=== PATIENT | female | born 1925 | race Caucasian/White ===

== ENCOUNTER → 2016-03-13 | Outpatient (CLI) | payer OTHER ==
[~2016-03-13] MED LIST: ACET-1256 PO; CHOL20007 PO; CMD/25 PO; CZR50 PO; HYDR12.55 PO; HYDR25TA5 PO; KFL500 PO; LCTX PO; LEVO75TA5 PO; METO50TA7 PO; MULT-190 PO; NXM/40 PO; ONDA4TAB46 PO; ROPI1TAB29 PO; SACC250C PO; SERT50TA PO; SIMV10TA2 PO; TPRSR25 PO; WARF-246 PO; WARF2.5T8 PO; WARF5TAB7 PO
[2016-03-13 11:06] LABS: URINE APPEARANCE CLOUDY (CLEAR); URINE BILIRUBIN NEG (NEG); URINE COLOR YELLOW; URINE NITRITE NEG (NEG); URINE SPECIFIC GRAVITY 1.018 (1.000-1.030); UROBILINOGEN NEG (NEG)
[2016-03-13 11:10] LABS: MANUAL MICROSCOPIC REQUIRED? NO; REVIEW REQ? NO
== END | disposition home or self-care (01) ==
LOC: C.LABSPEC 10:41
PROVIDERS: ATTEND Family Medicine
DX: R30.0 Dysuria (principal)

== ENCOUNTER → 2016-07-15 | Outpatient (CLI) | payer OTHER ==
[2016-07-15 17:22] LABS: HEMATOCRIT 43.2 % (37-47); MEAN CELL VOLUME 96.2 fL (80-100); MEAN CORPUSCULAR HGB CONC 32.2 g/dl (32-36); PLATELET COUNT 269 K/uL (130-400); RED BLOOD COUNT 4.49 M/uL (4.2-5.4)
[2016-07-15 18:13] LABS: ALT/SGPT 18 U/L (12-78); AST/SGOT 20 U/L (15-37); BLOOD UREA NITROGEN 33 mg/dl (7-18); BUN/CREATININE RATIO 32.7 (10-20); CARBON DIOXIDE 28 mmol/L (21-32); CHLORIDE 105 mmol/L (98-107); CHOLESTEROL 135 mg/dl (0-200); GLUCOSE 89 mg/dl (70-99); POTASSIUM 4.6 mmol/L (3.5-5.1); SODIUM 142 mmol/L (136-145); TRIGLYCERIDES 99 mg/dl (0-150); VERY LOW DENSITY LIPOPROT CALC 20 mg/dl
[2016-07-15 18:14] LABS: ALKALINE PHOSPHATASE 84 U/L (45-117); CHOLESTEROL/HDL RATIO 2.9; HDL CHOLESTEROL 46 mg/dl; LDL CHOLESTEROL CALCULATED 69 mg/dl
[2016-07-15 18:28] LABS: RATIO 123.6 mcg/mg (0-30.0)
[2016-07-15 18:35] LABS: CALCIUM 9.6 mg/dl (8.5-10.1)
[2016-07-15 19:44] LABS: MAGNESIUM 2.3 mg/dl (1.8-2.4)
[2016-07-16 05:59] LABS: ESTIMATED AVERAGE GLUCOSE 114 mg/dl; HA1C FLAG Normal (Normal)
== END | disposition home or self-care (01) ==
LOC: C.LABPBG 14:09
PROVIDERS: ATTEND Family Medicine
DX: I48.2 Chronic atrial fibrillation (principal); E78.5 Hyperlipidemia, unspecified; I10 Essential (primary) hypertension; Z79.899 Other long term (current) drug therapy; E11.9 Type 2 diabetes mellitus without complications; I65.29 Occlusion and stenosis of unspecified carotid artery

== ENCOUNTER 2016-07-30 12:51 | Observation (INO) | payer OTHER ==
[~2016-07-30] VITALS: Ht 162.6 cm; Wt 65.3 kg
[~2016-07-30 12:51] MED LIST changes: -CHOL20007 PO; -HYDR12.55 PO; -KFL500 PO; -LCTX PO; -METO50TA7 PO; -WARF2.5T8 PO; -WARF5TAB7 PO
[2016-07-30] MEDS ORDERED: SODIUM CHLORIDE 0.9% 1000ML 1,000 ML IV STA ×2 (13:06)
[2016-07-30] MEDS ORDERED: ONDANSETRON INJ 2 MG/ML 2 ML VIAL IV STA (13:06)
[2016-07-30] MEDS ORDERED: PROMETHAZINE HCL INJ 25 MG in SODIUM CHLORIDE 0.9% 50ML 50 ML IV SCH (13:28)
[2016-07-30] MEDS ORDERED: PROMETHAZINE HCL INJ 25 MG/ML 1 ML VIAL IV STA (13:28)
[2016-07-30] MEDS ORDERED: METO50TA7 PO (13:43)
[2016-07-30] MEDS ORDERED: CHOL20007 PO (13:44)
[2016-07-30] MEDS ORDERED: HYDR12.55 PO (13:44)
[2016-07-30] MEDS ORDERED: WARF2.5T8 PO (13:56)
[2016-07-30] MEDS ORDERED: WARF5TAB7 PO (13:56)
[2016-07-30 14:10] LABS: BASO % 0.9 %; BASO ABS # 0.04 K/uL (0-0.2); COMPLETE YES; EOS % 1.3 %; HEMATOCRIT 45.5 % (37-47); IG% 0.2 %; LYMPH % 22.2 %; LYMPH ABS # 1.02 K/uL (1.2-3.4); MEAN CORPUSCULAR HEMOGLOBIN 30.6 pg (25-34); MEAN CORPUSCULAR HGB CONC 32.5 g/dl (32-36); MEAN PLATELET VOLUME 10.2 fL (7.4-10.4); MONO % 8.7 %; NEUT % 66.7 %; PLATELET COUNT 267 K/uL (130-400); RED BLOOD COUNT 4.84 M/uL (4.2-5.4); WHITE BLOOD COUNT 4.59 K/uL (4.8-10.8)
[2016-07-30 14:27] LABS: BUN/CREATININE RATIO 31.2 (10-20); CALCIUM 9.3 mg/dl (8.5-10.1); CREATININE 1.3 mg/dl (0.60-1.20); MAGNESIUM 2.2 mg/dl (1.8-2.4); POTASSIUM 4.1 mmol/L (3.5-5.1)
[2016-07-30 14:28] LABS: PROTHROMBIN TIME (PATIENT) 44.9 SECONDS (9.0-12.0)
[2016-07-30 14:35] LABS: PARTIAL THROMBOPLASTIN RATIO 1.8
[2016-07-30 14:38] LABS: THYROID STIMULATING HORMONE 0.348 uIu/ml (0.300-4.500)
--- NOTE | 2016-07-30 15:25 | DIAGNOSTIC IMAGING REPORT ---
HEAD CT NONCONTRAST CT DOSE: 537.48 mGy.cm HISTORY: new onset garbled speech, ? confusion TECHNIQUE: Multiaxial CT images of the head were performed without the use of intravenous contrast. Automated exposure control was utilized for this study. Comparison: Head CT 03/21/2015. Findings: Brain parenchyma: There is periventricular white matter lucency compatible with microvascular ischemic change. 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 There is no hemorrhage, mass effect, or evidence of acute territorial ischemia by CT criteria. Gupta-white matter differentiation is maintained. No extra-axial fluid collection is seen. Ventricles, sulci and cisterns: CSF prominence compatible with cerebral atrophy. Intracranial vasculature: Vascular calcification is noted. Calvarium: Unremarkable. Sinuses and mastoids: Small fluid levels within the sphenoid sinuses. Orbits: Grossly intact. IMPRESSION: Small fluid levels within the sphenoid sinuses. Involutional changes with old infarction. No acute intracranial process. Electronically signed by: David Jean M.D. 07/30/2016 3:24 PM Dictated Date/Time: 07/30/2016 3:20 PM
--- NOTE | 2016-07-30 15:52 | DIAGNOSTIC IMAGING REPORT ---
ABDOMEN 2VIEW W/PA CHEST RTN CLINICAL HISTORY: Vomiting and diarrhea x3 days COMPARISON STUDY: 06/08/2015 FINDINGS: The heart is enlarged. There are postsurgical changes of midline sternotomy. There is a left subclavian dual-chamber central venous pacemaker present. There is underlying emphysema. There is no free air. There are right basilar atelectatic changes. Supine and decubitus views the abdomen reveal scattered air-fluid levels. There are no transition zones indicate bowel obstruction. There are surgical clips within the right upper quadrant consistent with a prior cholecystectomy. There is a scoliosis. There are amorphous basin calcifications likely representing calcified uterine fibroids. IMPRESSION: Multiple air-fluid levels. No evidence of bowel obstruction. No evidence of free air. Electronically signed by: Ganga Almaraz M.D. 07/30/2016 3:50 PM Dictated Date/Time: 07/30/2016 3:49 PM
--- NOTE | 2016-07-30 15:56 | EMERGENCY ROOM VISIT NOTE ---
ED Visit Note First contact with patient: 13:06 The patient was seen and examined with CYN Ferro. I agree with the history, physical and findings. Please see the note for disposition and details. The patient was unable to receive Zofran due to concerns about prolonged QT. She did get IV Phenergan. The patient then developed slurred speech, confusion and weakness shortly after the IV Phenergan. She's never had any problems like this ever before. Her nausea and vomiting did resolve. The patient was placed on supplemental oxygen. She had dysarthria but her rest of her symptoms seem to be improving. Head CT did not show any findings of acute CVA. The patient gradually improved. Given the findings further evaluation and management was deemed appropriate in the hospital. I suspect that she had a severe reaction to the Phenergan and its anticholinergic effects. This was placed on her allergy list and I instruct the patient and family never to have this medication again. I gave my usual and customary discussion regarding this issue.
[2016-07-30 17:11] LABS: URINE APPEARANCE CLOUDY (CLEAR); URINE BILIRUBIN NEG (NEG); URINE COLOR YELLOW; URINE EPITHELIAL CELL AUTO 0-5 /lpf (0-5); URINE NITRITE POS (NEG); URINE SPECIFIC GRAVITY 1.016 (1.000-1.030); UROBILINOGEN NEG (NEG)
[2016-07-30 17:14] LABS: MANUAL MICROSCOPIC REQUIRED? NO; REVIEW REQ? NO
[2016-07-30] MEDS ORDERED: PHARMACIST DISCHARGE MED REC CONSULT PRN (18:45)
--- NOTE | 2016-07-30 19:25 | History and Physical ---
History & Physical Date & Time of Service: Jul 30, 2016 at 18:43 Chief Complaint: FLU Primary Care Physician: Serenity Carrero DO History of Present Illness Source: patient, family 89 year-old pleasant female who was in her regular state of health until she attended a baby shower 4 days ago. There was a lot of mixed food including [place] salad. the day after the baby shower she developed severe N/V, 25 persons got sick at the baby shower then a day later she developed diarrhea X 7 - 10 times denies any blood in stool or vomitus. denies fevers, chills, sweats while in the ER she was given Phenergan shortly after that she developed left sided facial droop and left sided weakness. that shortly after that her weakness resolved Past Medical/Surgical History Medical Problems: (1) ANTICOAGULANTS,LT,CURRENT USE Status: Chronic (2) ATRIAL FIBRILLATION Status: Chronic (3) CARDIAC PACEMAKER IN SITU Status: Chronic (4) CHF (congestive heart failure) Status: Chronic (5) CORON ATHEROSCLER NOS TYPE VESSEL, OSAGE OR GRAFT Status: Chronic (6) HYPERTENSION NOS Status: Chronic (7) KNEE JOINT REPLACEMENT STATUS Status: Resolved Family History No significant family history Social History Smoking Status: Never Smoker Drug Use: none Marital Status: Housing status: lives with family Occupational Status: retired Immunizations History of Influenza Vaccine: Yes Influenza Vaccine Date: Nov 11, 2012 History of Tetanus Vaccine?: Unknown History of Pneumococcal: Yes Pneumococcal Date: Sep 16, 2011 History of Hepatitis B Vaccine: Unknown Multi-Drug Resistant Organisms History of MDRO: Yes Type of MDRO: MRSA Allergies Coded Allergies: Tramadol (Verified Allergy, Unknown, NAUSEA AND VOMITING, 06/08/15) Promethazine (Verified Adverse Reaction, Severe, STROKE-LIKE SYMPTOMS, ) PER DR. SIM, SIGNIFICANT ALTERED MENTAL STAUS, SLURRED SPEECH THAT OCCURRED 07/30/16 IN ED Hydrocodone (Verified Adverse Reaction, Mild, NAUSEA AND VOMITING, 06/08/15 ) Opioid Analgesics (Verified Adverse Reaction, Mild, Constipation, 06/08/15) Home Medications Scheduled Cholecalciferol (Vitamin D3), 2,000 UNITS PO DAILY Esomeprazole Magnesium (Nexium), 40 MG PO DAILY Hydrochlorothiazide (Hydrochlorothiazide), 12.5 MG PO DAILY Levothyroxine Sodium (Levothyroxine Sodium), 75 MCG PO DAILY Losartan Potassium (Losartan Potassium), 50 MG PO QAM Metoprolol Succ (Toprol Xl) (Toprol-Xl), 50 MG PO DAILY Sertraline (Zoloft), 50 MG PO DAILY Simvastatin (Zocor), 10 MG PO QPM Warfarin Sod (Jantoven), 5 MG PO WK Warfarin Sod (Jantoven), 2.5 MG PO [id number] Scheduled PRN Acetaminophen (Tylenol), 1,000 MG PO Q8 PRN for Pain Review of Systems Constitutional: No fever, No chills, No sweats, No weight loss, No weakness, No fatigue, No problem reported Eyes: No worsening of vision, No eye pain, No redness, No discharge, No diplopia, No problem reported ENT: No hearing loss, No unusual epistaxis, No nasal symptoms, No sore throat, No tinnitus, No dental problems, No trouble swallowing, No problem reported Respiratory: No cough, No sputum, No wheezing, No shortness of breath, No dyspnea on exertion, No dyspnea at rest, No hemoptysis, No problem reported Cardiovascular: No chest pain, No orthopnea, No PND, No edema, No claudication , No palpitations, No problem reported Abdomen: + nausea, + vomiting, + diarrhea, No pain, No constipation, No GI bleeding, No problem reported Musculoskeletal: No joint pain, No muscle pain, No swelling, No calf pain, No problem reported Genitourinary - Female: No dysuria, No urinary frequency, No urinary urgency, No urinary incontinence, No urinary retention, No hematuria, No dysmenorrhea, No menorrhagia, No metrorrhagia, No rash, No vaginal bleeding, No vaginal discharge, No vaginal itching, No vulvodynia, No , No problem reported Neurologic: + numbness/tingling, No memory loss, No paralysis, No weakness, No vertigo, No balance problems, No problem reported Psychiatric: No depression symptoms, No anhedonism, No anxiety, No insomnia, No substance abuse, No problem reported Endocrine: No fatigue, No excessive thirst, No excessive urination, No problem reported Hematologic / Lymphatic: No abnormal bleeding/bruising, No clotting problems, No swollen lymph nodes, No night sweats, No problem reported Integumentary: No rash, No itch, No new/changing skin lesions, No color change , No bleeding, No problem reported Physical Exam Vital Signs Date Time Temp Pulse Resp B/P (MAP) Pulse Ox O2 Delivery O2 Flow Rate FiO2 07/30/16 17:00 61 18 184/97 100 Nasal Cannula 4.0 07/30/16 16:00 63 20 189/81 100 Nasal Cannula 4.0 07/30/16 14:14 64 20 159/78 98 Room Air 07/30/16 14:13 65 20 168/70 98 64 156/78 07/30/16 14:08 61 07/30/16 13:46 96 Room Air 07/30/16 13:00 36.7 68 18 117/63 96 Room Air General Appearance: no apparent distress Head: normocephalic Eyes: normal inspection, EOMI ENT: normal ENT inspection, hearing grossly normal Neck: supple Respiratory/Chest: chest non-tender, lungs clear, normal breath sounds, no respiratory distress Cardiovascular: regular rate, rhythm, no edema, no gallop, no JVD, no murmur Abdomen/GI: normal bowel sounds, non tender, soft, no organomegaly, no pulsatile mass, normal rectal exam Genitourinary - Female: external genitalia normal, normal pelvic exam, normal cervix, uterus normal shape and size Back: normal inspection, no CVA tenderness, no muscle spasm Extremities/Musculoskelatal: normal inspection, no calf tenderness, normal capillary refill, no pedal edema 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, no motor/sensory deficits, alert, normal mood/affect, normal reflexes, oriented x 3 Skin: normal color, warm/dry, no rash Diagnostics Laboratory Results Results Past 24 Hours Test 07/30/16 00:00 07/30/16 13:55 07/30/16 18:35 Range/Units Urine Color YELLOW Urine Appearance CLOUDY CLEAR Urine pH 5.0 4.5-7.5 Urine Specific [place] 1.016 1.000-1.030 Urine Protein TRACE NEG Urine Glucose (UA) NEG NEG Urine Ketones NEG NEG Urine Occult Blood 3+ NEG Urine Nitrite POS NEG Urine Bilirubin NEG NEG Urine Urobilinogen NEG NEG Urine Leukocyte Esterase LARGE NEG Urine WBC (Auto) >30 0-5 /hpf Urine RBC (Auto) 5-10 0-4 /hpf Urine Hyaline Casts (Auto) 1-5 0-5 /lpf Urine Epithelial Cells (Auto) 0-5 0-5 /lpf Urine Bacteria (Auto) 4+ NEG White Blood Count 4.59 4.8-10.8 K/uL Red Blood Count 4.84 4.2-5.4 M/uL Hemoglobin 14.8 12.0-16.0 g/dL Hematocrit 45.5 37-47 % Mean Corpuscular Volume 94.0 80-100 fL Mean Corpuscular Hemoglobin 30.6 25-34 pg Mean Corpuscular Hemoglobin Concent 32.5 32-36 g/dl Platelet Count 267 130-400 K/uL Mean Platelet Volume 10.2 7.4-10.4 fL Neutrophils (%) (Auto) 66.7 % Lymphocytes (%) (Auto) 22.2 % Monocytes (%) (Auto) 8.7 % Eosinophils (%) (Auto) 1.3 % Basophils (%) (Auto) 0.9 % Neutrophils # (Auto) 3.06 1.4-6.5 K/uL Lymphocytes # (Auto) 1.02 1.2-3.4 K/uL Monocytes # (Auto) 0.40 0.11-0.59 K/uL Eosinophils # (Auto) 0.06 0-0.5 K/uL Basophils # (Auto) 0.04 0-0.2 K/uL RDW Standard Deviation 47.7 36.4-46.3 fL RDW Coefficient of Variation 13.8 11.5-14.5 % Immature Granulocyte % (Auto) 0.2 % Immature Granulocyte # (Auto) 0.01 0.00-0.02 K/uL Prothrombin Time 44.9 9.0-12.0 SECONDS Prothromb Time International Ratio 4.0 0.9-1.1 Activated Partial Thromboplast Time 47.5 21.0-31.0 SECONDS Partial Thromboplastin Ratio 1.8 Sodium Level 141 136-145 mmol/L Potassium Level 4.1 3.5-5.1 mmol/L Chloride Level 107 98-107 mmol/L Carbon Dioxide Level 26 21-32 mmol/L Anion Gap 8.0 3-11 mmol/L Blood Urea Nitrogen 41 7-18 mg/dl Creatinine 1.30 0.60-1.20 mg/dl Est Creatinine Clear Calc Drug Dose 24.7 ml/min Estimated GFR () 42.1 Estimated GFR (Non- 36.3 BUN/Creatinine Ratio 31.2 10-20 Random Glucose 90 70-99 mg/dl Calcium Level 9.3 8.5-10.1 mg/dl Magnesium Level 2.2 1.8-2.4 mg/dl Total Bilirubin 0.3 0.2-1 mg/dl Direct Bilirubin 0.2 0-0.2 mg/dl Aspartate Amino Transf (AST/SGOT) 37 15-37 U/L Alanine Aminotransferase (ALT/SGPT) 32 12-78 U/L Alkaline Phosphatase 86 45-117 U/L Troponin I 0.019 0-0.045 ng/ml Total Protein 7.5 6.4-8.2 gm/dl Albumin 3.7 3.4-5.0 gm/dl Lipase 184 73-393 U/L Thyroid Stimulating Hormone (TSH) 0.348 0.300-4.500 uIu/ml Microbiology Results 07/30/16 Urine Culture, Received Pending Impression Assessment and Plan 89 / F with PMHx of presented with nausea/vomiting/diarrhea after a baby shower where more than 25 persons got sick in ED after receiving Phenergan developed left sided facial droop and weakness current;y resolved. Assessment: N/V diarrhea , likely food poisoning TIA with left sided facial droop coumadin coagulopathy A Fib CAD CHF unspecified HTN Plan: hold coumadin start lipitor empirically diarrhea already improved will hold off Abx stool study including c diff IVF hydration MRI of the head carotid US check INR in am no ASA due to the coagulopathy VTE Prophylaxis VTE Risk Assessment Done? Y/N: Yes Risk Level: Moderate
[2016-07-30] MEDS ORDERED: IV FLUIDS COMPLETED PRN (19:45)
[2016-07-30 21:35] VITALS: BP_SYST 172; BP_SYST 179; BP_DIAS 94; BP_DIAS 99; PULSE 87; TEMP 36.9; O2SAT 98; Ht 162.6 cm; Wt 65.3 kg
--- NOTE | 2016-07-30 21:36 | DIAGNOSTIC IMAGING REPORT ---
ULTRASOUND OF THE CAROTID ARTERIES CLINICAL HISTORY: Strokelike symptoms. COMPARISON STUDY: Carotid artery ultrasound dated 05/26/2013. TECHNIQUE: Real-time, grayscale, and color Doppler sonography of the carotid arteries is performed. Images are reviewed in the transverse and longitudinal planes. FINDINGS: Blood pressures were not assessed due to IV sites. The carotid arteries are patent bilaterally and demonstrate antegrade flow. There is moderate echogenic shadowing atherosclerotic plaque seen in the carotid bulbs bilaterally. Normal doppler arterial waveforms are seen throughout. Velocity measurements are listed below. Common carotid peak systolic velocity (cm/sec): RIGHT: 36 LEFT: 36 ICA proximal peak systolic velocity (cm/sec): RIGHT: 85 LEFT: 89 ICA mid peak systolic velocity (cm/sec): RIGHT: 76 LEFT: 64 ICA distal peak systolic velocity (cm/sec): RIGHT: 58 LEFT: 39 ICA/CC peak systolic ratio: RIGHT: 2.4 LEFT: 2.5 Antegrade flow was shown in the vertebral arteries. The external carotid arteries are patent. IMPRESSION: 1. Atherosclerotic plaque with no sonographic evidence of hemodynamically significant stenosis in the right or left carotid arterial system by velocity criteria. 2. Antegrade flow is shown in the vertebral arteries. Electronically signed by: Ramiro Alva M.D. 07/30/2016 9:35 PM Dictated Date/Time: 07/30/2016 9:33 PM
--- NOTE | 2016-07-30 22:41 | EMERGENCY ROOM VISIT NOTE ---
ED Visit Note First contact with patient: 13:08 Chief Complaint: Vomiting and diarrhea History of Present Illness: Ms. Chandra is a 89 year-old white female who is brought into the ED via wheelchair accompanied by multiple family members complaining of vomiting and diarrhea. Historically patient reports patient has a history of coronary artery disease, hypertension and is status post cholecystectomy. She does not have any other gastrointestinal disorders. Daughter reports patient recently finished a prescription of for urinary tract infection approximately 2 weeks ago and has been feeling well. Patient and daughter reports she was at a family bilingual medical receptionist on Wednesday, 5 days ago. On Wednesday patient developed an acute onset of vomiting and since that time has had multiple episodes of vomiting and watery diarrhea. Daughter reports 1220 family members who are at 3 and and at least half of the other people had similar symptoms. Patient reports she is not nauseated but anytime she eats she vomits within a few minutes. After vomiting she reports she has a few seconds of nausea and that resolved. Vomiting is described as bilious and nobody has seen blood in her vomitus. Additionally she reports that he's been having multiple episodes of light brown watery stools that contained food components. They have not identified any aggravating or alleviating factors related to the diarrhea. She has not had any medications for her vomiting or diarrhea. Associated with these symptoms patient does report she has been having mid and upper right quadrant pain. She could not describe this discomfort. She rates this discomfort 3/10. The vomiting increases her discomfort. Patient and family members denies fevers, chills, sweats, skin eruptions, skin color changes, upper respiratory tract symptoms, shortness of breath, chest pain , constipation, rectal bleeding, black/tarry stools, urinary symptoms, hematuria , vaginal bleeding, vaginal discharge, back/flank pain. Review of Systems: As noted above in history of present illness. All body systems were reviewed and found to be negative as noted above. Past Medical History: As previously noted and frequent urinary tract infections , status post bilateral knee arthroplasties and unspecified ankle surgery. Current Medications: Medications Dose Route/Sig Max Daily Dose Days Date Category Dose Instructions Jantoven (Warfarin Sodium) 2.5 Mg Tab 2.5 Mg PO [id number] 07/30/16 Reported Jantoven (Warfarin Sodium) 5 Mg Tab 5 Mg PO WK 07/30/16 Reported WEDNESDAY* Vitamin D3 (Cholecalciferol) 2,000 Unit Tab 2,000 Units PO DAILY 90 07/30/16 Reported Hydrochlorothiazide 12.5 Mg Tab 12.5 Mg PO DAILY 90 07/30/16 Reported Toprol-Xl (Metoprolol Succinate) 50 Mg Tabcr 50 Mg PO DAILY 07/30/16 Reported Tylenol (Acetaminophen) 500 Mg Tab 1,000 Mg PO Q8 PRN 06/08/15 Reported Losartan Potassium 50 Mg Tab 50 Mg PO QAM 30 03/24/15 Rx Zoloft (Sertraline HCl) 50 Mg Tab 50 Mg PO DAILY 01/21/15 Reported Nexium (Esomeprazole Magnesium) 40 Mg Capcr 40 Mg PO DAILY 01/21/15 Reported Levothyroxine Sodium 75 Mcg Tab 75 Mcg PO DAILY 01/21/15 Reported Zocor (Simvastatin) 10 Mg Tab 10 Mg PO QPM 09/05/11 Reported Allergies to Medications: Vicodin, opiates, tramadol. Social History: Patient is not employed; she lives with her daughter and feels safe in her home environment; she denies tobacco and alcohol use. Physical Examination: Vital Signs: Date Time Temp Pulse Resp B/P (MAP) Pulse Ox O2 Delivery O2 Flow Rate FiO2 07/30/16 18:41 62 23 98 07/30/16 18:36 62 24 100 07/30/16 18:31 73 16 98 07/30/16 18:26 71 20 95 07/30/16 18:21 18 07/30/16 18:16 56 07/30/16 18:11 60 32 96 07/30/16 18:06 20 07/30/16 18:01 61 22 07/30/16 17:57 205/102 07/30/16 17:56 61 24 07/30/16 17:51 60 29 07/30/16 17:46 63 33 100 07/30/16 17:41 62 23 99 07/30/16 17:36 26 07/30/16 17:31 60 27 96 07/30/16 17:26 67 17 98 07/30/16 17:21 65 20 07/30/16 17:16 61 24 100 07/30/16 17:11 62 31 100 07/30/16 17:06 72 26 99 07/30/16 17:04 184/97 07/30/16 17:00 61 18 184/97 100 Nasal Cannula 4.0 07/30/16 16:51 79 20 07/30/16 16:46 23 07/30/16 16:41 60 21 07/30/16 16:36 60 45 98 07/30/16 16:33 189/81 07/30/16 16:00 63 20 189/81 100 Nasal Cannula 4.0 07/30/16 15:06 16 07/30/16 15:01 18 07/30/16 14:56 19 07/30/16 14:51 63 17 07/30/16 14:46 38 07/30/16 14:41 20 07/30/16 14:36 64 26 95 07/30/16 14:31 63 16 07/30/16 14:26 63 19 07/30/16 14:21 62 17 98 07/30/16 14:16 60 20 97 07/30/16 14:14 64 20 159/78 98 Room Air 07/30/16 14:13 65 20 168/70 98 64 156/78 07/30/16 14:11 61 17 100 07/30/16 14:09 159/78 07/30/16 14:08 61 07/30/16 14:08 168/70 07/30/16 14:04 156/70 07/30/16 13:46 96 Room Air 07/30/16 13:00 36.7 68 18 117/63 96 Room Air GENERAL: 89-year-old female in minimal distress due to symptoms, nontoxic- appearing, afebrile and hemodynamically stable. NEUROLOGICAL: Awake, alert and oriented to person, place and time. Answering questions appropriately and following commands. Good hand eye coordination. Cranial nerves II through XII grossly intact. SKIN: Warm, dry and pink. No soft tissue eruptions or trauma noted. HEENT: Atraumatic and normocephalic. PERRLA. Sclera white and conjunctiva pink. Oral cavity moist and pink. Pharynx is nonerythematous or edematous. Speech normal. No lymphadenopathy. Trachea midline. No jugular venous distention. BACK: No tenderness over the bony spine. No CVA tenderness. THORAX: Lungs sounds are clear to auscultation and equal bilaterally with symmetrical chest wall. No wheezing, rales or rhonchi. No crepitus, tenderness , subcutaneous air or deformities noted. HEART: Regular rate and rhythm. No gallops, rubs or murmurs are appreciated. ABDOMEN: Flat and soft with mild tenderness in the mid and right upper quadrant areas. Positive bowel sounds in all quadrants. No guarding, rigidity or organomegaly. EXTREMITIES: Moves all extremities well on command and with purpose. All distal neurovascular statuses are intact and equal bilaterally. ED Course: Patient is assessed as noted above. Laboratory Testing: Test 07/30/16 00:00 07/30/16 13:55 Range/Units Urine Color YELLOW Urine Appearance CLOUDY CLEAR Urine pH 5.0 4.5-7.5 Urine Specific [place] 1.016 1.000-1.030 Urine Protein TRACE NEG Urine Glucose (UA) NEG NEG Urine Ketones NEG NEG Urine Occult Blood 3+ NEG Urine Nitrite POS NEG Urine Bilirubin NEG NEG Urine Urobilinogen NEG NEG Urine Leukocyte Esterase LARGE NEG Urine WBC (Auto) >30 0-5 /hpf Urine RBC (Auto) 5-10 0-4 /hpf Urine Hyaline Casts (Auto) 1-5 0-5 /lpf Urine Epithelial Cells (Auto) 0-5 0-5 /lpf Urine Bacteria (Auto) 4+ NEG White Blood Count 4.59 4.8-10.8 K/uL Red Blood Count 4.84 4.2-5.4 M/uL Hemoglobin 14.8 12.0-16.0 g/dL Hematocrit 45.5 37-47 % Mean Corpuscular Volume 94.0 80-100 fL Mean Corpuscular Hemoglobin 30.6 25-34 pg Mean Corpuscular Hemoglobin Concent 32.5 32-36 g/dl Platelet Count 267 130-400 K/uL Mean Platelet Volume 10.2 7.4-10.4 fL Neutrophils (%) (Auto) 66.7 % Lymphocytes (%) (Auto) 22.2 % Monocytes (%) (Auto) 8.7 % Eosinophils (%) (Auto) 1.3 % Basophils (%) (Auto) 0.9 % Neutrophils # (Auto) 3.06 1.4-6.5 K/uL Lymphocytes # (Auto) 1.02 1.2-3.4 K/uL Monocytes # (Auto) 0.40 0.11-0.59 K/uL Eosinophils # (Auto) 0.06 0-0.5 K/uL Basophils # (Auto) 0.04 0-0.2 K/uL RDW Standard Deviation 47.7 36.4-46.3 fL RDW Coefficient of Variation 13.8 11.5-14.5 % Immature Granulocyte % (Auto) 0.2 % Immature Granulocyte # (Auto) 0.01 0.00-0.02 K/uL Prothrombin Time 44.9 9.0-12.0 SECONDS Prothromb Time International Ratio 4.0 0.9-1.1 Activated Partial Thromboplast Time 47.5 21.0-31.0 SECONDS Partial Thromboplastin Ratio 1.8 Sodium Level 141 136-145 mmol/L Potassium Level 4.1 3.5-5.1 mmol/L Chloride Level 107 98-107 mmol/L Carbon Dioxide Level 26 21-32 mmol/L Anion Gap 8.0 3-11 mmol/L Blood Urea Nitrogen 41 7-18 mg/dl Creatinine 1.30 0.60-1.20 mg/dl Est Creatinine Clear Calc Drug Dose 24.7 ml/min Estimated GFR () 42.1 Estimated GFR (Non- 36.3 BUN/Creatinine Ratio 31.2 10-20 Random Glucose 90 70-99 mg/dl Calcium Level 9.3 8.5-10.1 mg/dl Magnesium Level 2.2 1.8-2.4 mg/dl Total Bilirubin 0.3 0.2-1 mg/dl Direct Bilirubin 0.2 0-0.2 mg/dl Aspartate Amino Transf (AST/SGOT) 37 15-37 U/L Alanine Aminotransferase (ALT/SGPT) 32 12-78 U/L Alkaline Phosphatase 86 45-117 U/L Troponin I 0.019 0-0.045 ng/ml Total Protein 7.5 6.4-8.2 gm/dl Albumin 3.7 3.4-5.0 gm/dl Lipase 184 73-393 U/L Thyroid Stimulating Hormone (TSH) 0.348 0.300-4.500 uIu/ml Urine Culture: Pending Acute Abdominal Series: Was read by myself and the radiologist and shows no acute infiltrates, effusions or pneumothorax. 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 Abdominal component shows multiple air- fluid levels without any signs of obstruction. No free air under the diaphragm. 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 Head CT: Was reviewed by myself and read by the radiologist showing small fluid levels within the sphenoid sinuses. 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 No acute intercranial process. Patient was hydrated with normal saline and she received 25 mg of Phenergan IV for nausea. Shortly after patient received her Phenergan she developed garbled speech and a small left-sided facial droop. Family members also reported her lips and fingernails became cyanotic. Patient's oxygen saturation at this time was 98% on room air. She was placed on 2 L of oxygen. I did reassess her and she indeed had garbled speech that eventually cleared and she did have a mild left- sided facial droop when the muscles were rest but no droop with smile; she denied any visual changes, hearing changes, negative pronator drift,. And was oriented 3. At this point in time is when the patient had a CT and was negative. Patient was reassessed multiple times during her stay in the emergency department. Patient's case was reviewed with Dr. Villalpando; he independently assessed the patient we agreed on diagnostic approach, treatment, disposition and plan. Patient's case was consulted with case management and Dr. Basurto, hospitalist , for medical observation/admission. Patient's family members were educated about today's findings. Clinical Impression: Vomiting and diarrhea. Elevated INR. Elevated BUN and creatinine consistent with renal insufficiency or acute renal injury. Decision-Making: Initially my differential diagnosis I considered food poisoning , gastroenteritis, C. difficile diarrhea and other causes. Disposition and Plan: Patient be brought in the hospital for observation/ admission; please see the hospitalist notes for final disposition and plan.
[2016-07-30 23:14] VITALS: BP 171/82; PULSE 65; TEMP 36.7; O2SAT 97
[2016-07-30] MEDS: SODIUM CHLORIDE 0.9% 1000ML 1,000 ML IV SCH (23:14)
--- NOTE | 2016-07-30 23:15 | Progress Note ---
Progress Note Date of Service Jul 30, 2016. Progress Note MRI cancelled, patient has a pacemaker
[2016-07-30 23:16] VITALS: BP 166/74
[2016-07-31] VITALS (7 sets, daily range): BP systolic 130–179; BP diastolic 66–86; PULSE 61–67; TEMP 36.1–37; O2SAT 94–100
[2016-07-31] MEDS ORDERED: NURSING VERBAL MED ORDER ONE ×3 (00:15→21:15)
[2016-07-31] MEDS ORDERED: ACETAMINOPHEN 325 MG TAB ONE (00:26)
[2016-07-31] MEDS: ATORVASTATIN 20 MG TAB PO SCH ×2 (00:28→08:01)
[2016-07-31 06:19] LABS: ESTIMATED AVERAGE GLUCOSE 114 mg/dl; HA1C FLAG Normal (Normal)
[2016-07-31 06:42] LABS: BASO % 1.3 %; BASO ABS # 0.06 K/uL (0-0.2); COMPLETE YES; EOS % 4.4 %; HEMATOCRIT 44.8 % (37-47); IG% 0.2 %; LYMPH % 40.4 %; LYMPH ABS # 1.84 K/uL (1.2-3.4); MEAN CELL VOLUME 94.5 fL (80-100); MEAN CORPUSCULAR HEMOGLOBIN 31.2 pg (25-34); MEAN PLATELET VOLUME 10.3 fL (7.4-10.4); MONO % 9.7 %; PLATELET COUNT 233 K/uL (130-400); RED BLOOD COUNT 4.74 M/uL (4.2-5.4); WHITE BLOOD COUNT 4.55 K/uL (4.8-10.8)
[2016-07-31 06:55] LABS: PROTHROMBIN TIME (PATIENT) 57.2 SECONDS (9.0-12.0)
[2016-07-31 07:10] LABS: BUN/CREATININE RATIO 29.8 (10-20); CALCIUM 9.1 mg/dl (8.5-10.1); CREATININE 1.2 mg/dl (0.60-1.20); POTASSIUM 3.9 mmol/L (3.5-5.1)
[2016-07-31 07:14] LABS: CHOLESTEROL/HDL RATIO 2.7; PHOSPHORUS 3.2 mg/dl (2.5-4.9)
[2016-07-31] MEDS: SERTRALINE HCL 50 MG TAB PO SCH (09:25)
[2016-07-31] MEDS: LEVOTHYROXINE 75 MCG TAB PO SCH (09:25)
[2016-07-31] MEDS: LOSARTAN POTASSIUM 50 MG TAB PO SCH (09:25)
[2016-07-31] MEDS: CEPHALEXIN MONOHYDRATE 500 MG CAP PO SCH ×2 (09:26→21:10)
[2016-07-31] MEDS: METOPROLOL SUCC 50MG EXT REL TAB PO SCH (09:26)
[2016-07-31] MEDS: SODIUM CHLORIDE 0.9% 1000ML 1,000 ML IV SCH (15:58)
[2016-07-31] MEDS: LACTOBACILLUS ACIDOPHILUS (FLORANEX) TAB PO SCH (17:24)
[2016-07-31] MEDS ORDERED: SIMVASTATIN 10 MG TAB PO SCH (21:00)
[2016-07-31] MEDS ORDERED: ACETAMINOPHEN 325 MG TAB PO SCH ×2 (21:00→21:30)
[2016-08-01 02:00] VITALS: BP 174/90; PULSE 89; TEMP 36.4; O2SAT 96
--- NOTE | 2016-08-01 05:18 | Progress Note ---
Subjective Date of Service: late entry for visit on Jul 31, 2016. Subjective Pt evaluation today including: conversation w/ patient, conversation w/ family (son, at bedside), physical exam, chart review, lab review, review of studies ( CT head, carotid duplex), review of inpatient medication list Pain: denies abd pain PO Intake: tolerating diet without nausea, emesis, diarrhea Voiding: no voiding problems patient reports she was just treated for UTI about 1-2 weeks ago and just finished abx course she feels "great" - anxious to get home no new neuro symptoms drinking is poor but son confirms this is a chronic problem Problem List Medical Problems: (1) Constipation Status: Acute (2) Episode of unresponsiveness Status: Acute (3) Fall Status: Acute (4) GI bleed Status: Acute (5) Head injury Status: Acute (6) Hypotension Status: Acute (7) Supratherapeutic INR Status: Acute (8) Urinary tract infection Status: Acute (9) UTI (urinary tract infection) Status: Acute (10) Vomiting and diarrhea Status: Acute Review of Systems Constitutional: No fever Respiratory: No shortness of breath, No dyspnea on exertion Cardiac: No chest pain, No orthopnea Abdomen: No pain, No nausea, No vomiting, No diarrhea Objective Vital Signs Date Time Temp Pulse Resp B/P (MAP) Pulse Ox O2 Delivery O2 Flow Rate FiO2 08/01/16 04:00 Room Air 08/01/16 02:00 36.4 89 18 174/90 (118) 96 Room Air 4.0 08/01/16 00:00 Room Air 07/31/16 20:00 100 Room Air 07/31/16 19:48 36.7 64 20 164/78 (106) 100 Room Air 07/31/16 16:00 100 Room Air 07/31/16 15:26 37.0 62 20 167/82 (110) 100 Room Air 07/31/16 12:39 36.7 61 16 130/66 (87) 99 Room Air 07/31/16 12:00 Room Air 07/31/16 08:00 Room Air 07/31/16 07:52 36.4 67 16 179/86 (117) 95 Room Air Physical Exam General Appearance: no apparent distress ENT: + pertinent finding (MM dry) Neck: no JVD Respiratory/Chest: lungs clear, no respiratory distress, no accessory muscle use Cardiovascular: regular rate, rhythm, no gallop, no murmur Abdomen: normal bowel sounds, non tender, soft, no organomegaly Extremities: no pedal edema Neurologic/Psychiatric: no motor/sensory deficits, alert, normal mood/affect, oriented x 3 Skin: + pertinent finding (turgor is poor) Laboratory Results Last 24 Hours Test 07/31/16 06:32 08/01/16 04:44 White Blood Count 4.55 K/uL Red Blood Count 4.74 M/uL Hemoglobin 14.8 g/dL Hematocrit 44.8 % Mean Corpuscular Volume 94.5 fL Mean Corpuscular Hemoglobin 31.2 pg Mean Corpuscular Hemoglobin Concent 33.0 g/dl Platelet Count 233 K/uL Mean Platelet Volume 10.3 fL Neutrophils (%) (Auto) 44.0 % Lymphocytes (%) (Auto) 40.4 % Monocytes (%) (Auto) 9.7 % Eosinophils (%) (Auto) 4.4 % Basophils (%) (Auto) 1.3 % Neutrophils # (Auto) 2.00 K/uL Lymphocytes # (Auto) 1.84 K/uL Monocytes # (Auto) 0.44 K/uL Eosinophils # (Auto) 0.20 K/uL Basophils # (Auto) 0.06 K/uL RDW Standard Deviation 47.5 fL RDW Coefficient of Variation 13.7 % Immature Granulocyte % (Auto) 0.2 % Immature Granulocyte # (Auto) 0.01 K/uL Prothrombin Time 57.2 SECONDS Prothromb Time International Ratio 5.0 Sodium Level 142 mmol/L Potassium Level 3.9 mmol/L Chloride Level 110 mmol/L Carbon Dioxide Level 24 mmol/L Anion Gap 8.0 mmol/L Blood Urea Nitrogen 36 mg/dl Creatinine 1.20 mg/dl Est Creatinine Clear Calc Drug Dose 27.5 ml/min Estimated GFR () 46.4 Estimated GFR (Non- 40.0 BUN/Creatinine Ratio 29.8 Random Glucose 75 mg/dl Lactic Acid Level 1.3 mmol/L Calcium Level 9.1 mg/dl Phosphorus Level 3.2 mg/dl Magnesium Level 2.0 mg/dl Total Bilirubin 0.4 mg/dl Aspartate Amino Transf (AST/SGOT) 34 U/L Alanine Aminotransferase (ALT/SGPT) 28 U/L Alkaline Phosphatase 83 U/L Total Protein 7.0 gm/dl Albumin 3.5 gm/dl Globulin 3.5 gm/dl Albumin/Globulin Ratio 1.0 Triglycerides Level 98 mg/dl Cholesterol Level 106 mg/dl HDL Cholesterol 40 mg/dl LDL Cholesterol, Calculated 46 mg/dl VLDL Cholesterol, Calculated 20 mg/dl Cholesterol/HDL Ratio 2.7 Assessment and Plan 89yo female - 1. recent gastroenteritis - either viral vs toxin-induced food poisoning - resolved. 2. acute kidney injury in setting of CKD stage 3 - improving. Cont IVF overnight, repeat BMP am. 3. e. coli UTI - start keflex 500mg BID; await final cx result to guide abx selection. 4. phenergan adverse reaction vs TIA - listening to her son the patient got lethargic and slurry speech 10 minutes after receiving IV phenergan. Doubt TIA; sounds like adverse rxn to phenergan. Added to allergy list. TIA work-up normal. 5. supratherapeutic INR - due to recent abx usage, poor appetite, etc. Hold warfarin today, repeat in am. 6. HTN - controlled with home BP regimen. 7. hypothyroidism - compensated. PT, OT evals done - cleared for home anticipate d/c in am son updated Continued [facility] stay due to: multiple IV medications needed Discharge planning: home
[2016-08-01] MEDS: LEVOTHYROXINE 75 MCG TAB PO SCH (05:38)
[2016-08-01 06:23] LABS: BASO % 1.3 %; BASO ABS # 0.07 K/uL (0-0.2); COMPLETE YES; EOS % 4.2 %; LYMPH % 29.9 %; LYMPH ABS # 1.58 K/uL (1.2-3.4); MEAN CELL VOLUME 93.9 fL (80-100); MEAN CORPUSCULAR HEMOGLOBIN 30.3 pg (25-34); MEAN CORPUSCULAR HGB CONC 32.3 g/dl (32-36); MONO % 11.3 %; NEUT % 53.3 %; PLATELET COUNT 230 K/uL (130-400); RED BLOOD COUNT 4.26 M/uL (4.2-5.4); WHITE BLOOD COUNT 5.29 K/uL (4.8-10.8)
[2016-08-01 06:58] LABS: BUN/CREATININE RATIO 30.5 (10-20); CALCIUM 8.2 mg/dl (8.5-10.1); CREATININE 0.96 mg/dl (0.60-1.20); POTASSIUM 4.3 mmol/L (3.5-5.1)
[2016-08-01 07:28] LABS: PROTHROMBIN TIME (PATIENT) 46.6 SECONDS (9.0-12.0)
[2016-08-01 07:31] LABS: INR 4.1 (0.9-1.1)
[2016-08-01 07:43] VITALS: BP 161/81; PULSE 68; TEMP 36.5; O2SAT 99
[2016-08-01] MEDS: LOSARTAN POTASSIUM 50 MG TAB PO SCH (08:42)
[2016-08-01] MEDS: METOPROLOL SUCC 50MG EXT REL TAB PO SCH ×2 (08:42→09:19)
[2016-08-01] MEDS: SERTRALINE HCL 50 MG TAB PO SCH (08:43)
[2016-08-01] MEDS: LACTOBACILLUS ACIDOPHILUS (FLORANEX) TAB PO SCH ×2 (08:43→12:05)
[2016-08-01] MEDS: CEPHALEXIN MONOHYDRATE 500 MG CAP PO SCH (08:43)
[2016-08-01] MEDS ORDERED: METO50TA7 PO (11:53)
[2016-08-01] MEDS ORDERED: LCTX PO (11:53)
[2016-08-01] MEDS ORDERED: KFL500 PO (11:53)
[2016-08-01] MEDS ORDERED: CZR50 PO (11:53)
[2016-08-01] MEDS ORDERED: HYDR12.55 PO (11:54)
--- NOTE | 2016-08-01 12:02 | Discharge Instructions ---
Discharge Instructions Date of Service Aug 01, 2016. Admission Reason for Admission: dehydration Discharge Discharge Diagnosis / Problem: dehydration, gastroenteritis, urinary infection Discharge Goals Goal(s): Learn about illness, Diagnostic testing, Therapeutic intervention Activity Recommendations Activity Limitations: as noted below Over the next 1-2 days gradually increase your activity level as you recover from your illness. . Instructions / Follow-Up Instructions / Follow-Up From Dr. Balderas - 1. Urinary tract infection - * you have been prescribed keflex (cephalexin) 500mg tablets * please start this TONIGHT * you have 5 1/2 days of treatment left * take it twice a day until finished 2. Gastroenteritis - * your vomiting and diarrhea was due to a "stomach bug" * it's possible this could have been food poisoning or due to a virus * either way your symptoms are better * to prevent additional diarrhea, especially since you will be on antibiotics for the urinary infection, please take - * lactinex 4 tabs three times a day for 7 days * eat plenty of yogurt the next few days 3. Dehydration - * please drink some extra water over the next few days to stay hydrated 4. Coumadin - * your coumadin level (INR) today is 4.1 * please SKIP your coumadin TODAY * check your INR tomorrow on Wednesday * if the INR is 3 or less please resume your coumadin at that time according to your previous schedule * if the INR is still above 3 on Wednesday then SKIP your coumadin once again * on Wednesday please call your coumadin provider for further guidance 5. Blood pressure - * your blood pressures in the hospital were high much of the time * please take your blood pressures according to this schedule - * hydrochlorothiazide 12.5mg EVERY MORNING * metoprolol xl 50mg EVERY MORNING * losartan 50mg EVERY EVENING AT BEDTIME * check your blood pressure daily at home 6. Return to [facility] if - * you have fever over 100.4 degrees * your diarrhea returns and becomes severe * you have abdominal pain * you have chest pain or shortness of breath 7. Follow-up - * please see Dr. Carrero the middle of this coming week Current Hospital Diet Patient's current hospital diet: Low Fiber Diet Discharge Diet Recommended Diet: AHA Diet (Heart Healthy), Low Fiber Diet Procedures Procedures Performed: CAT scan of the brain - no stroke. Carotid ultrasound - no evidence of blockages in your carotid arteries. Pending Studies Studies pending at discharge: no Laboratory Results Hemoglobin A1c Test 07/30/16 13:55 Range/Units Estimated Average Glucose 114 mg/dl Hemoglobin A1c 5.6 4.5-5.6 % Lipid Panel Test 07/31/16 06:32 Range/Units Triglycerides Level 98 0-150 mg/dl Cholesterol Level 106 0-200 mg/dl HDL Cholesterol 40 mg/dl Cholesterol/HDL Ratio 2.7 LDL Cholesterol, Calculated 46 mg/dl Medical Emergencies . Who to Call and When: Medical Emergencies: If at any time you feel your situation is an emergency, please call 911 immediately. . Non-Emergent Contact Non-Emergency issues call your: Primary Care Provider Call Non-Emergent contact if: temperature is above 100.5, you have any medication questions . . "Provider Documentation" section prepared by Chito Balderas. . VTE Core Measure Inpt VTE Proph given/why not?: Warfarin (Coumadin)
[2016-08-01 12:14] VITALS: BP 188/92; PULSE 75; TEMP 36.5; O2SAT 98
[2016-08-01 12:24] VITALS: BP 188/92; PULSE 75; TEMP 36.5; O2SAT 98
--- NOTE | 2016-08-05 10:46 | Discharge Summary ---
Discharge Summary Date of Service Aug 05, 2016. Discharge Summary Admission Date: Jul 30, 2016 at 18:41 Discharge Date: Aug 01, 2016 Discharge Disposition: Home Principal Diagnosis: acute kidney injury Problems/Secondary Diagnoses: 1. gastroenteritis - resolved 2. e. coli UTI 3. CKD stage 3 4. adverse reaction to phenergan 5. atrial fibrillation 6. HTN 7. CAD 8. pacemaker status 9. chronic systolic CHF 10. supratherapeutic INR Immunizations: Have You Had Influenza Vaccine: Yes Influenza Vaccine Date: Nov 11, 2012 History of Tetanus Vaccine?: Unknown History of Pneumococcal: Yes Pneumococcal Date: Sep 16, 2011 History of Hepatitis B Vaccine: Unknown Procedures: 1. head CT - normal, no acute pathology. 2. carotid duplex study negative for ICA stenosis. Consultations: PT, OT Medication Reconciliation New Medications: Cephalexin Monohydrate (Cephalexin) 500 Mg Cap 500 MG PO BID, #11 CAP 0 Refills start evening of 08/01/16 Lactobacillus Acidophilus (Floranex) 1 Tab Tab 4 TAB PO TIDM for 7 Days, #84 TAB 0 Refills Changed Medications: Hydrochlorothiazide (Hydrochlorothiazide) 12.5 Mg Tab 12.5 MG PO QAM for 90 Days, #90 TAB 3 Refills (Changed from: DAILY) Losartan Potassium (Losartan Potassium) 50 Mg Tab 50 MG PO HS for 30 Days, TAB (Changed from: QAM; Removed Quantity) Metoprolol Succ (Toprol Xl) (Toprol-Xl) 50 Mg Tabcr 50 MG PO QAM, #30 TAB (Changed from: DAILY) Continued Medications: Acetaminophen (Tylenol) 500 Mg Tab 1000 MG PO Q8 PRN for Pain, TAB Cholecalciferol (Vitamin D3) 2,000 Unit Tab 2000 UNITS PO DAILY for 90 Days, TAB 3 Refills Esomeprazole Magnesium (Nexium) 40 Mg Capcr 40 MG PO DAILY, CAP Levothyroxine Sodium (Levothyroxine Sodium) 75 Mcg Tab 75 MCG PO DAILY, TAB Sertraline (Zoloft) 50 Mg Tab 50 MG PO DAILY, TAB Simvastatin (Zocor) 10 Mg Tab 10 MG PO QPM, TAB Warfarin Sod (Jantoven) 5 Mg Tab 5 MG PO WK WEDNESDAY* Warfarin Sod (Jantoven) 2.5 Mg Tab 2.5 MG PO [id number] Referrals At Discharge Follow up Referrals: Physician Referral - Please Call For Appointment with Serenity Carrero, DO Discharge Exam Physical Exam: General Appearance: no apparent distress ENT: pharynx normal Neck: no JVD Respiratory/Chest: lungs clear, no respiratory distress, no accessory muscle use Cardiovascular: + pertinent finding (irregular, s1, s2, 2/6 systolic murmur LSB) Abdomen / GI: normal bowel sounds, non tender, soft, no organomegaly Extremities: no pedal edema Neurologic/Psychiatric: alert, oriented x 3 Hospital Course HISTORY OF PRESENT ILLNESS: 89 year-old pleasant female who was in her regular state of health until she attended a baby shower 4 days ago. There was a lot of mixed food including Macaroni salad. the day after the baby shower she developed severe N/V, 25 persons got sick at the baby shower then a day later she developed diarrhea X 7 - 10 times denies any blood in stool or vomitus. denies fevers, chills, sweats while in the ER she was given Phenergan shortly after that, probably about 10 minutes after the phenergan administration , she developed slurred speech there was some question of left sided facial droop and left sided weakness. all of these symptoms quickly resolved HOSPITAL COURSE: The patient had evidence of acute kidney injury 2nd to significant dehydration from her recent gastroenteritis. C. diff toxin and stool culture were both negative. Presenting Creatinine was 1.3, improving to 0.9 prior to discharge. She improved with use of IV fluids and supportive care. She also had evidence of UTI. Urine culture grew e. coli, and she will complete a course of keflex at home. INR was supratherapeutic all of her stay but she had no active bleeding. INR on day of discharge was 4.1 She was instructed to skip her coumadin on day of discharge and repeat her INR at home within 24 hours. If her INR was still greater than 3 she was again advised to HOLD her coumadin and then follow-up with her coumadin provider on 08/03/16. The neuropsychiatric changes seen in the ER were likely due to adverse effects from phenergan rather than a true TIA. After speaking with her son it sounds as if she developed slurry speech and mild delirium/sedation from the phenergan. Phenergan was added to her "allergy" list. Lastly, she had labile BPs throughout her stay. A review of the outpatient clinic records shows recently elevated BPs as well. She was asked to take her BP meds at different times throughout the day to have better 24-hour coverage of her BP. Total Time Spent: Greater than 30 minutes This includes examination of the patient, discharge planning, medication reconciliation, and communication with other providers. Discharge Instructions Please refer to the electronic Patient Visit Report (Discharge Instructions) for additional information. Follow-Up see Dr. Carrero within 5 days Additional Copies To Serenity Carrero DO
--- NOTE | 2016-08-06 13:19 | EDITING REQUIRED CODING QUERY ---
SUPPORTING DIAGNOSIS NEEDED A supporting diagnosis is required for the test/procedure performed on this patient in order for us to be reimbursed by the patient's insurance. Please provide a supporting diagnosis for the following test/procedure listed below next to the test name along with your signature. *If there is no additional diagnosis for this patient that would support the following test/procedure please document that below next to the test/procedure. Test(s)/Procedure(s) that require a supporting diagnosis: * HEMOGLOBIN A1C DIAGNOSIS: suspected underlying diabetes, stratify risk factors Provider Signature: electronically signed, Zeny Graham, Date: 08/21/16 Thank you Stef[facility] [place] [employer] Once completed, please kindly fax back to [phone] For questions please call [phone]
== END 2016-08-01 12:55 | disposition home or self-care (01) ==
LOC: C.EDB 12:52 → C.2E 18:41 → ENRESERV 20:20
PROVIDERS: ADMIT Internal Medicine; ATTEND Internal Medicine
DX: E86.0 Dehydration (principal); K52.9 Noninfective gastroenteritis and colitis, unspecified; N17.9 Acute kidney failure, unspecified; N39.0 Urinary tract infection, site not specified; B96.20 Unspecified Escherichia coli [E. coli] as the cause of diseases classified elsewhere; D68.9 Coagulation defect, unspecified; T45.515A Adverse effect of anticoagulants, initial encounter; I48.2 Chronic atrial fibrillation; I12.9 Hypertensive chronic kidney disease with stage 1 through stage 4 chronic kidney disease, or unspecified chronic kidney disease; E03.9 Hypothyroidism, unspecified; I25.10 Atherosclerotic heart disease of native coronary artery without angina pectoris; N18.3 Chronic kidney disease, stage 3 (moderate); Z79.01 Long term (current) use of anticoagulants; Z95.0 Presence of cardiac pacemaker; Z96.653 Presence of artificial knee joint, bilateral

== ENCOUNTER → 2017-02-16 | Outpatient (CLI) | payer OTHER ==
[~2017-02-16] MED LIST changes: +CHOL20007 PO; -CMD/25 PO; +HYDR12.55 PO; -HYDR25TA5 PO; +KFL500 PO; +LCTX PO; +METO50TA7 PO; -MULT-190 PO; -ONDA4TAB46 PO; -ROPI1TAB29 PO; -SACC250C PO; -TPRSR25 PO; -WARF-246 PO; +WARF2.5T8 PO; +WARF5TAB7 PO
[2017-02-16 17:41] LABS: HEMATOCRIT 45.4 % (37-47); HEMOGLOBIN 14.6 g/dL (12.0-16.0); MEAN CELL VOLUME 93.4 fL (80-100); MEAN CORPUSCULAR HGB CONC 32.2 g/dl (32-36); MEAN PLATELET VOLUME 11.6 fL (7.4-10.4); PLATELET COUNT 245 K/uL (130-400); RED CELL DISTRIBUTION WIDTH CV 14.5 % (11.5-14.5); RED CELL DISTRIBUTION WIDTH SD 49.7 fL (36.4-46.3); WHITE BLOOD COUNT 5.55 K/uL (4.8-10.8)
[2017-02-16 17:53] LABS: ALBUMIN 3.6 gm/dl (3.4-5.0); ALT/SGPT 18 U/L (12-78); AST/SGOT 20 U/L (15-37); BLOOD UREA NITROGEN 35 mg/dl (7-18); CALCIUM 9.4 mg/dl (8.5-10.1); CARBON DIOXIDE 30 mmol/L (21-32); CHOLESTEROL 139 mg/dl (0-200); CREATININE 1.04 mg/dl (0.60-1.20); GLUCOSE 85 mg/dl (70-99); POTASSIUM 3.9 mmol/L (3.5-5.1); SODIUM 141 mmol/L (136-145)
[2017-02-16 18:02] LABS: ALKALINE PHOSPHATASE 97 U/L (45-117); LDL CHOLESTEROL (DIRECT) 81 mg/dl; TOTAL PROTEIN 7.7 gm/dl (6.4-8.2)
[2017-02-17 06:34] LABS: HEMOGLOBIN A1C 5.7 % (4.5-5.6)
--- NOTE | 2017-02-18 09:28 | CODING QUERY NO DIAGNOSIS ---
TREATMENT RENDERED WITHOUT A DIAGNOSIS 06/29/27 To promote full compliance with coding requirements relating to patient care, physician participation is requested in all cases of garbage stoker uncertainty. Please assist us with providing a diagnosis/symptom for the test(s) below: A diagnosis/symptom was not documented on your Order. A valid diagnosis/symptom is required to bill all insurances. Please remember that we are unable to code a diagnosis of rule out, probable, possible, questionable, or suspected. DOS 02/16/17 Tests that require a diagnosis: * COMP METABOLIC DIAGNOSIS: * CHEM 7 PANEL DIAGNOSIS: * HEPATIC PANEL DIAGNOSIS: * MAGNESIUM DIAGNOSIS: * T-4 DIAGNOSIS: * TSH DIAGNOSIS: * HEMOGLOBIN A1C DIAGNOSIS: * LDL DIRECT DIAGNOSIS: * LIVER PROFILE DIAGNOSIS: * CBC W/O DIFF DIAGNOSIS: *ON YOUR ORDER YOU HAVE DX CODE E78.10, THIS IS AN INVALID CODE, PLEASE ADD THE CORRECT DX CODE Provider Signature: Date: Thank you Kristin [facility] Information Management Once completed, please kindly fax back to [phone] For questions please call [phone]
== END | disposition home or self-care (01) ==
LOC: C.LABPBG 12:59
PROVIDERS: ATTEND Internal Medicine Cardiovascular Disease
DX: I48.2 Chronic atrial fibrillation (principal); I50.9 Heart failure, unspecified; Z79.899 Other long term (current) drug therapy

== ENCOUNTER → 2017-04-06 | Outpatient (CLI) | payer OTHER ==
[~2017-04-06] MED LIST changes: -METO50TA7 PO; +METO50TA8 PO
[2017-04-06 17:48] LABS: BASO % 0.9 %; BASO ABS # 0.06 K/uL (0-0.2); EOS ABS # 0.26 K/uL (0-0.5); HEMATOCRIT 39.9 % (37-47); HEMOGLOBIN 13.1 g/dL (12.0-16.0); IG# 0.01 K/uL (0.00-0.02); LYMPH % 20.7 %; LYMPH ABS # 1.33 K/uL (1.2-3.4); MEAN CELL VOLUME 91.3 fL (80-100); MEAN CORPUSCULAR HGB CONC 32.8 g/dl (32-36); MEAN PLATELET VOLUME 10.9 fL (7.4-10.4); MONO % 10.6 %; MONO ABS # 0.68 K/uL (0.11-0.59); NEUT % 63.6 %; NEUT ABS # 4.09 K/uL (1.4-6.5); PLATELET COUNT 265 K/uL (130-400); RED CELL DISTRIBUTION WIDTH CV 15.2 % (11.5-14.5); RED CELL DISTRIBUTION WIDTH SD 51.2 fL (36.4-46.3); WHITE BLOOD COUNT 6.43 K/uL (4.8-10.8)
[2017-04-06 18:17] LABS: ALBUMIN 3.3 gm/dl (3.4-5.0); ALT/SGPT 19 U/L (12-78); BLOOD UREA NITROGEN 40 mg/dl (7-18); CALCIUM 8.9 mg/dl (8.5-10.1); CARBON DIOXIDE 27 mmol/L (21-32); GLUCOSE 119 mg/dl (70-99); POTASSIUM 3.8 mmol/L (3.5-5.1); SODIUM 141 mmol/L (136-145)
[2017-04-06 18:28] LABS: ALKALINE PHOSPHATASE 88 U/L (45-117); AST/SGOT 20 U/L (15-37)
== END | disposition home or self-care (01) ==
LOC: C.LABPBG 14:01
PROVIDERS: ATTEND Family Medicine
DX: R51 Headache (principal); M54.2 Cervicalgia